=== PATIENT | female | born 1985 ===

== ENCOUNTER 2016-06-15 07:41 | Inpatient (IN) | payer MEDICAID, OTHER ==
[2016-06-15] MEDS: Lactated Ringer's 1,000 ML IV SCH ×4 (08:10→23:24)
[2016-06-15 08:16] VITALS: BMI 29.5
[2016-06-15] MEDS ORDERED: Lactated Ringer's 1,000 ML IV SCH (08:30)
[2016-06-15] MEDS ORDERED: ceFAZolin 1 GM in Sodium Chloride 0.9% 100 ML IVPB ONE (09:01)
[2016-06-15 09:02] LABS: BASO % 0.4 % (0.0-2.0); EOS # 0.1 K/uL (0.0-0.7); EOS % 1.1 % (0.0-4.0); HEMATOCRIT 28.1 % (34.0-47.0); LYMPH # 1.9 K/uL (1.0-4.3); MEAN CELL VOLUME 70.8 fl (81.0-99.0); MEAN CORPUSCULAR HEMOGLOBIN 22.8 pg (27.0-31.0); MEAN CORPUSCULAR HGB CONC 32.2 g/dL (33.0-37.0); MEAN PLATELET VOLUME 9.4 fl (7.2-11.7); MONO # 0.6 K/uL (0.0-0.8); MONO % 8.1 % (0.0-10.0); NEUT # 4.3 K/uL (1.8-7.0); NEUT % 62.4 % (50.0-75.0); NRBC % 0.1 % (0.0-0.0); RED CELL DISTRIBUTION WIDTH 18.2 % (11.5-14.5); WHITE BLOOD COUNT 6.8 K/uL (4.8-10.8)
[2016-06-15] MEDS ORDERED: Morphine 1 mg/ml preservative-free Inj(Duramorph) ONE (09:15)
[2016-06-15] MEDS ORDERED: Phenylephrine 10 mg/ml Inj ONE (09:45)
[2016-06-15] MEDS ORDERED: ePHEDrine 50 mg/ml Inj ONE (09:56)
[2016-06-15] MEDS ORDERED: Ketamine 50 mg/ml Inj (10 ml) ONE (10:48)
[2016-06-15] MEDS ORDERED: Oxycodone/Acetaminophen 5/325 mg Tab PO PRN ×3 (12:53→14:52)
[2016-06-15] MEDS ORDERED: Dextrose 5%/0.45% NS 1,000 ML IV SCH (13:00)
--- NOTE | 2016-06-15 13:03 | OBDS ---
DELIVERY PERSONNEL Nurse Dev Ops Engineer Certified: Pina Pak CNM Delivery Doctor: Janak Carmichael MD Textiles Printer: Magui Hernández RN/ Yelena Savage Anesthesiologist: Siva MATERNAL INFORMATION Delivery Anesthesia: Spinal; General Medications in Delivery: pitocin Estimated Blood Loss (ml): 800 Placenta Cultured: No Maternal Complications: None RN Comments: FHR before start at 0941 FHR 126 Pt with pain prior to end of surgery received general anesthesia. Provider Comments: Repeat low flap transverse section via Pfannenstiel incision. Patient de livered viable female with Apgars of 9 and 9 at one and 5 minutes respectively. EBL 800 mL fluids 1900 mL lactated Ringer's urine output 150 mL of clear urine at the end of proce dure complications Severe intra-abdominal and pelvic adhesions. Patient tolerated procedure well. LABOR SUMMARY EDC: 06/20/2016 00:00 No. Babies in Womb: 1 Attempted: No Labor Anesthesia: None LABOR INFORMATION Reason for Induction: Not Applicable Oxytocin: N/A Group B Beta Strep: Positive Antibiotics # of Doses: preop [id number] [id number] Steroids Given: None Reason Steroids Not Administered: Not Applicable MEMBRANES Membranes Rupture Method: Artificial Rupture of Membranes: 06/15/2016 10:12 Length of Rupture (hrs): 0.02 Amniotic Fluid Color: Clear Amniotic Fluid Amount: Small Amniotic Fluid Odor: Normal STAGES OF LABOR Stage 3 hrs: 0 Stage 3 min: 2 CSECTION DELIVERY Primary Indication: Repeat Elective CSection Urgency: Elective CSection Incidence: Repeat Labor: No Labor Elective: N/A CSection Incision: Lower Uterine Transverse Other Sterilization Procedure: Bilateral Salpingectomy BABY A INFORMATION Infant Delivery Date/Time: 06/15/2016 10:13 Method of Delivery: Born in Route : No : N/A Forceps: N/A Vacuum Extraction: N/A Shoulder Dystocia : No SHOULDER DYSTOCIA BABY A Delivery Date/Time: 06/15/2016 10:13 PRESENTATION/POSITION BABY A Presentation: Cephalic Cephalic Presentation: Vertex Breech Presentation: N/A PLACENTA INFORMATION BABY A Placenta Delivery Time : 06/15/2016 10:15 Placenta Method of Delivery: Manual Removal Placenta Status: Delivered SCORES BABY A Heart Rate 1 min: >100 bpm Resp Effort 1 min: Good Cry Reflex Irritability 1 min: Cough or Sneeze or Pulls Away Muscle Tone 1 min: Active Motion Color 1 min: Body Antlers, Extremities Blue SCORE 1 MIN: 9 Heart Rate 5 min: >100 bpm Resp Effort 5 min: Good Cry Reflex Irritability 5 min: Cough or Sneeze or Pulls Away Muscle Tone 5 min: Active Motion Color 5 min: Body Antlers, Extremities Blue SCORE 5 MIN: 9 INFANT INFORMATION BABY A Gestational Age at Delivery: 39.0 Gestational Status: Term Outcome : Liveborn Condition : Stable Sex: Female IDENTIFICATION/MEDS BABY A ID Band Number: [id number] ID Band Location: Left Leg; Left Arm WEIGHT/LENGTH BABY A Birthweight (gms): 3610 Weight (lb): 7 Weight (oz): 15 Length Inches: 19.50 Length cms: 49.5 CORD INFORMATION BABY A No. Cord Vessels: 3 Nuchal Cord : N/A Cord Blood Taken: Yes Suction: Mouth; Nose ASSESSMENT BABY A Infant Complications: None Physical Findings at Delivery: Within Normal Limits Infant Respirations: Appears Normal Network Support/ALS Called : No Infant Care By: DR Mark Transferred To: Remains with Mother
[2016-06-15] MEDS ORDERED: Simethicone 80 mg Chewtab PO SCH ×2 (16:00)
[2016-06-15] MEDS: Oxycodone/Acetaminophen 5/325 mg Tab PO PRN (16:03)
[2016-06-15] MEDS: Simethicone 80 mg Chewtab PO SCH ×2 (16:03→22:31)
[2016-06-16] MEDS: Simethicone 80 mg Chewtab PO SCH ×4 (04:00→21:38)
[2016-06-16 07:33] LABS: HEMATOCRIT 23.7 % (34.0-47.0); MEAN CORPUSCULAR HEMOGLOBIN 22.6 pg (27.0-31.0); MEAN CORPUSCULAR HGB CONC 31.8 g/dL (33.0-37.0); WHITE BLOOD COUNT 10.9 K/uL (4.8-10.8)
[2016-06-16] MEDS ORDERED: Influenza Vaccine(5yr & older) 0.5 ML/45 MCG IM ONE (09:00)
[2016-06-16] MEDS: Oxycodone/Acetaminophen 5/325 mg Tab PO PRN ×2 (10:18→21:38)
[2016-06-16] MEDS: Multivitamin With Minerals Tab PO SCH (10:19)
--- NOTE | 2016-06-16 17:27 | OBPPN ---
Datetime: 06/16/2016 06:01 PP Pain Prov: Within normal limits PP Nausea Prov: Denies PP Flatus Prov: Yes PP BM Prov: No PP Breasts Prov: Normal PP Heart Prov: Normal PP Lungs Prov: Normal PP Abdomen/Uterus Prov: Normal PP Lochia Prov: Normal PP Vulva/Perineum Prov: Normal PP CVA Tenderness Prov: Normal PP Extremities Prov: Normal PP C/S Incision Prov: Normal PP Progress Prov: Normal PP Comments Phys Exam Prov: No acute distress. Comfortable in bed. Lungs CTA b/l. RRR S1S2. Abd: soft, uterus umb level firm. +BS Dressing removed. Wound clean and dry Edges attached no calf tenderness Alert, oriented PP Impression Prov: Normal progression PP Plan Prov: Continue present management PP Progress Note Prov: POD1 Patient seen at bedside on POD1 s/p C-Sect. Denies nausea, vomiting or headache. Lochia like mense s, pain is controlled with motrin. +Flatus and - BM. Mackay was removed. Tolerating liquid diet since yesterday. Denies calf pain. O:See above A: 30 y/o S/P C-Sect on POD1 stable P: Cont Motrin,Percocet PRN for pain Advanced diet to reg. Encourage ambulation F/U I_O Anticipated DC 06/18/16 Eliezer Lee PGY1 [facility] ADDENDUM: pt seen _ examined by me. agree with above assessment andplan w/ following addition o: hgb 7.5 p: pt advised of decreased hgb and d/w her the preexisting decrease prior to surgery. she states s he had started takeing Fe about 2wks ago.. Compliance iwth tx reonforced IP PP Procedures: None Vital Signs Provider PP: Reviewed; Within Normal Limits
[2016-06-17] MEDS: Simethicone 80 mg Chewtab PO SCH ×2 (09:33→16:31)
--- NOTE | 2016-06-17 09:39 | OBPPN ---
Datetime: 06/17/2016 05:58 PP Pain Prov: Within normal limits PP Nausea Prov: Denies PP Flatus Prov: Yes PP BM Prov: No PP Breasts Prov: Normal PP Heart Prov: Normal PP Lungs Prov: Normal PP Abdomen/Uterus Prov: Normal PP Lochia Prov: Normal PP Vulva/Perineum Prov: Normal PP CVA Tenderness Prov: Normal PP Extremities Prov: Normal PP C/S Incision Prov: Normal PP Progress Prov: Normal PP Comments Phys Exam Prov: No acute distress. Comfortable in bed. Lungs CTA b/l. RRR S1S2. Abd: soft, uterus below umb level, firm. +BS Wound clean and dry. Kiana in place. Edges attached no calf tenderness Alert, oriented PP Impression Prov: Normal progression PP Plan Prov: Continue present management PP Progress Note Prov: POD2 Patient seen at bedside on POD2 s/p C-Sect. Denies nausea, vomiting or headache. Lochia less than menses, pain is controlled with motrin. +Flatus and - BM. Voiding with no difficulty. Tolerating reg diet. Denies calf pain. O:See above A: 30 y/o S/P C-Sect on POD2 stable P: Cont Motrin,Percocet PRN for pain Restart Iron sup after DC as per OB attendant recs. Cont reg diet Encourage ambulation Anticipated DC 06/18/16 Eliezer Lee PGY1 Addendum by attending: Patient has been evaluated independently by myself and I agree with the abo ve. Patient is POD #2, stable, continue routine care IP PP Procedures: None Vital Signs Provider PP: Reviewed; Within Normal Limits
[2016-06-17] MEDS: Multivitamin With Minerals Tab PO SCH (10:45)
[2016-06-18] MEDS: Simethicone 80 mg Chewtab PO SCH ×2 (04:15→09:26)
--- NOTE | 2016-06-18 11:39 | OBDCSUM ---
Datetime: 06/18/2016 08:20 Discharged to, Provider: Home Follow up at, Provider: [facility] Dis[facility] Instr Activity: Normal activity Disch Instr Diet: Regular Discharge Instructions, Provider: Routine instructions given Discharge Diagnosis, Provider: Term Delivered Discharge Time: 06/18/2016 11:30 Follow up in weeks, Provider: 1 week Disch Referrals: None Contraception discussed, Prov: Yes Disch Activity Restrictions: No exercising; No lifting; No driving; No sexual activity; Nothing in v agina - [place], tampons, douche Discharge Comment, Provider: 30 y/o S/P C-Sect on POD3 with normal postpartumj progression. P: -Stable to be discharge home today -Cont with Ibuprofen and Percocet PRN for pain control at home -Take Ferrous Sulfate 325 mg by mouth BID -Take Senokot PRN for constipation. -Maintain good hydration and ambulation. -Continue . -F/U in 1 week with OBGYN for surgical wound evaluation. -F/U in 2-3 days with PMD/Undercover Agent. -ER precautions provided. Linda Hernandez PGY1 [facility] checo: pt seen _ examined by me. agree with above assessment and plan. pt understands she is to take Fe with oj for improved aborption Contraception after Delivery: Undecided
--- NOTE | 2016-06-18 11:40 | OBPPN ---
Datetime: 06/18/2016 07:15 PP Pain Prov: Within normal limits PP Nausea Prov: Denies PP Flatus Prov: Yes PP BM Prov: No PP Breasts Prov: Normal PP Heart Prov: Normal PP Lungs Prov: Normal PP Abdomen/Uterus Prov: Normal PP Lochia Prov: Normal PP CVA Tenderness Prov: Normal PP Extremities Prov: Normal PP C/S Incision Prov: Normal PP Progress Prov: Normal PP Comments Phys Exam Prov: Abdomen soft, no distended, mild tender to palpation at uterus level. No rigidity, guarding or rebound tenderness noted. Uterus firm at umbilicus. Surgical wound clean and d ry, ariana in place. BS +. Ext: No edema, no calf tenderness, Rico's sign negative B/L PP Impression Prov: Normal progression PP Plan Prov: Discharge PP Progress Note Prov: POD3 Patient was seen and examined at bedside. Denies nausea, vomiting, abdomianl pain and/or complains at this evaluation. Pain well controlled with pain medications. Lochia less than menses, and decrea sing progressively. Voiding with no difficulty. Passing gas, but has not yet had a bowel movement. To lerating reg diet. Ambulating on her own. O:See above A: 30 y/o S/P C-Sect on POD3 with normal postpartumj progression. P: -Stable to be discharge home today -Cont with Ibuprofen and Percocet PRN for pain control at home -Take Ferrous Sulfate 325 mg by mouth BID -Take Senokot PRN for constipation. -Maintain good hydration and ambulation. -Continue . -F/U in 1 week with OBGYN for surgical wound evaluation. -F/U in 2-3 days with PMD/Talent Agent. -ER precautions provided. Linda Hernandez PGY1 ob checo: pt seen _ examined by me. agree with above assessment and plan. pt understands she is to take Fe with oj for improved aborption IP PP Procedures: None Vital Signs Provider PP: Reviewed; Within Normal Limits
== END 2016-06-18 13:08 | disposition home or self-care (01) | DRG 371 ==
LOC: H.EROB2 07:41 → H.L&D 08:16 → H.OB/GYN 14:00
PROVIDERS: ADMIT Obstetrics & Gynecology; ATTEND Obstetrics & Gynecology
PROC: 10D00Z1 Extraction of Products of Conception, Low, Open Approach (ICD-10-PCS; principal; 2016-06-15)
PROC: 0UT70ZZ Resection of Bilateral Fallopian Tubes, Open Approach (ICD-10-PCS; 2016-06-15)
PROC: 4A1HXCZ Monitoring of Products of Conception, Cardiac Rate, External Approach (ICD-10-PCS; 2016-06-15)
DX: O34.211 Maternal care for low transverse scar from previous cesarean delivery (principal); N73.6 Female pelvic peritoneal adhesions (postinfective); N85.8 Other specified noninflammatory disorders of uterus; Z3A.39 39 weeks gestation of pregnancy; Z37.0 Single live birth; O99.89 Other specified diseases and conditions complicating pregnancy, childbirth and the puerperium; Z30.2 Encounter for sterilization